=== PATIENT | female | born 1995 | race Caucasian/White ===

== ENCOUNTER 2023-07-29 06:45 | Day surgery (SDC) | payer OTHER, BC ==
[2023-07-29] MEDS: Lactated Ringers 1,000 ML IV SCH (06:55)
[2023-07-29] MEDS ORDERED: Lactated Ringers 1,000 ML IV SCH (07:00)
[2023-07-29] MEDS ORDERED: Sodium Chloride 0.9% 10 ML Syringe FLUSH PRN (07:00)
[2023-07-29] MEDS ORDERED: Propofol 200 MG/20 ML SDV ONE (07:28)
[2023-07-29] MEDS ORDERED: Midazolam 1 MG/ML 2 ML SDV ONE (07:28)
[2023-07-29] MEDS ORDERED: fentaNYL 100 MCG/2 ML SDV ONE ×3 (07:28→09:42)
[2023-07-29] MEDS ORDERED: Dexamethasone 4 MG/ML 5 ML MDV ONE (07:29)
[2023-07-29] MEDS ORDERED: Metoclopramide 10 MG/2 ML SDV ONE (07:29)
[2023-07-29] MEDS ORDERED: ceFAZolin 2 GM Vial ONE (07:30)
[2023-07-29] MEDS ORDERED: Lidocaine 2% 5 ML SDV ONE (08:58)
[2023-07-29] MEDS ORDERED: Sodium Chloride 0.9% 10 ML Syringe FLUSH SCH (09:00)
[2023-07-29] MEDS: EPINEPHrine 1 MG/ML SDV ONE (09:29)
[2023-07-29] MEDS: Bupivacaine 0.25% 10 ML SDV ONE (09:45)
[2023-07-29] MEDS ORDERED: HYDROmorphone 0.5 MG/0.5 ML Syringe IVPUSH PRN (10:07)
[2023-07-29] MEDS ORDERED: Ondansetron 4 MG/2 ML SDV IVPUSH PRN (10:07)
[2023-07-29] MEDS: fentaNYL 100 MCG/2 ML SDV IVPUSH PRN (10:38)
[2023-07-29] MEDS: traMADol 50 MG Tab PO PRN (10:49)
== END 2023-07-29 12:05 | disposition home or self-care (01) ==
LOC: JD.SDS 06:45
PROVIDERS: ATTEND Orthopaedic Surgery
DX: S83.241A Other tear of medial meniscus, current injury, right knee, initial encounter (principal); M22.41 Chondromalacia patellae, right knee; I10 Essential (primary) hypertension; E66.9 Obesity, unspecified; Z68.38 Body mass index [BMI] 38.0-38.9, adult; Z86.16 Personal history of COVID-19; Z87.891 Personal history of nicotine dependence; Z79.899 Other long term (current) drug therapy; Z91.040 Latex allergy status; Z91.018 Allergy to other foods; X58.XXXA Exposure to other specified factors, initial encounter
CPT/HCPCS: 29881; A9270; J0171; J0690; J1100; J2250; J2704; J2765; J3010; J3490; J7120; 01400

== ENCOUNTER 2024-07-31 10:41 | Emergency (ER) | payer BC ==
[2024-07-31 11:57] LABS: BASOPHILS ABSOLUTE AUTO 0.1 K/mm3 (0.0-0.2); BASOPHILS PERCENT AUTO 0.8 % (0.0-1.0); EOSINOPHILS PERCENT AUTO 0.5 % (0.0-6.0); HEMATOCRIT 39.3 % (42.0-52.0); HEMOGLOBIN 13.6 gm/dl (14.0-18.0); IMMATURE GRAN ABSOLUTE AUTO 0.02 K/mm3 (0.00-0.05); IMMATURE GRAN PERCENT AUTO 0.3 % (0.0-0.4); LYMPHOCYTES ABSOLUTE AUTO 3.4 K/mm3 (1.0-4.8); LYMPHOCYTES PERCENT AUTO 51.4 % (24.0-44.0); MEAN CORPUSCULAR HEMOGLOBIN 28.7 pg (28.0-32.0); MEAN CORPUSCULAR HGB CONC 34.6 g/dl (32.0-36.0); MEAN CORPUSCULAR VOLUME 82.9 fl (83.0-99.0); MEAN PLATELET VOLUME 9.2 fl (9.4-12.4); MONOCYTES ABSOLUTE AUTO 0.5 K/mm3 (0.0-0.8); MONOCYTES PERCENT AUTO 7.1 % (0.0-8.0); NEUTROPHILS ABSOLUTE AUTO 2.7 K/mm3 (1.8-7.7); NEUTROPHILS PERCENT AUTO 39.9 % (41.0-71.0); PLATELET COUNT,PLT 211 K/mm3 (150-400); RED BLOOD CELL COUNT 4.74 M/mm3 (4.52-5.90); WHITE BLOOD CELL COUNT,WBC 6.62 K/mm3 (3.9-11.3)
[2024-07-31] MEDS: Lactated Ringers 1,000 ML IV ONE (12:14)
[2024-07-31 12:23] LABS: LACTIC ACID 0.9 mmol/L (0.4-2.0)
[2024-07-31 12:43] LABS: ALBUMIN 3.8 g/dl (3.4-5.0); ANION GAP 12.1 (5-15); BILIRUBIN TOTAL 1.5 mg/dL (0.2-1.0); BUN/CREATININE RATIO 8.9 (14-18); C-REACTIVE PROTEIN 1.35 mg/dL (<0.30); CALCIUM 8.9 mg/dL (8.5-10.1); CREATININE 0.9 mg/dL (0.7-1.3); EST CRCL DRUG DOSING (CG) 130.53 mL/min; POTASSIUM,K 4.1 mEq/L (3.5-5.1); PROTEIN TOTAL,TP 7.6 g/dl (6.4-8.2)
[2024-07-31 12:53] LABS: SLIDE REVIEW ABNORMAL SMEAR
[2024-07-31 13:01] LABS: APPEARANCE,URINE CLEAR (Clear); BILIRUBIN,URINE NEGATIVE (Negative); COLOR,URINE YELLOW (Yellow); GLUCOSE,URINE NEGATIVE (Negative); KETONES,URINE NEGATIVE (Negative); LEUKOCYTE ESTERASE,URINE NEGATIVE (Negative); NITRITE,URINE NEGATIVE (Negative); OCCULT BLOOD,URINE NEGATIVE (Negative); PROTEIN,URINE TRACE (Negative)
[2024-07-31 13:23] LABS: RBC,URINE 0-5 /hpf (0-5); WBC,URINE 0-5 /hpf (0-5)
[2024-07-31 13:24] LABS: BACTERIA,URINE FEW /hpf (FEW); EPITHELIAL CELLS,URINE 0-5 /hpf (0-5); MUCUS,URINE MANY /hpf (FEW)
[2024-07-31] MEDS ORDERED: Iopamidol 612 MG/ML 100 ML Bottle IVPUSH ONE (13:27)
[2024-07-31] MEDS: SUMAtriptan 6 MG/0.5 ML SDV SUBCUT ONE (14:25)
== END 2024-07-31 16:14 | disposition home or self-care (01) ==
LOC: JD.ED 10:41 → MERGE 10:41 → JD.ED 16:14
DX: G43.909 Migraine, unspecified, not intractable, without status migrainosus (principal); R16.1 Splenomegaly, not elsewhere classified; R79.89 Other specified abnormal findings of blood chemistry; Z79.899 Other long term (current) drug therapy
CPT/HCPCS: 36415; 70450; 74177; 80053; 81001; 83605; 83690; 85025; 86140; 87428; 96360; 96361; 96372; 99285; J3030; J7120; 99284